=== PATIENT | female | born 2000 | race Two or more races ===

== ENCOUNTER 2021-06-17 09:57 | Emergency (ER) | payer MEDICAID, OTHER ==
[~2021-06-17] VITALS: Ht 154.9 cm; Wt 68.0 kg
[2021-06-17 10:06] VITALS: BP 118/90
== END 2021-06-17 11:44 ==
LOC: ER 09:57
DX: S00.83XA Contusion of other part of head, initial encounter (principal); M79.18 Myalgia, other site; R51.9 Headache, unspecified; J45.909 Unspecified asthma, uncomplicated; Y04.8XXA Assault by other bodily force, initial encounter; Y93.89 Activity, other specified; Y92.89 Other specified places as the place of occurrence of the external cause; Y99.8 Other external cause status
CPT/HCPCS: 70450; 71045; 72125; 73562